=== PATIENT | male | born 1955 | race Caucasian/White ===

== ENCOUNTER 2020-03-05 02:19 | Observation (INO) ==
[2020-03-05] MEDS ORDERED: LORazepam 2 MG/4 ML VIAL IV STA (02:37)
[2020-03-05] MEDS ORDERED: SODIUM CHLORIDE 0.9% 1000ML 1,000 ML IV SCH (02:45)
[2020-03-05 02:57] LABS: Hematocrit (blood only) 45.6 % (42-52); Hemoglobin 15.9 g/dL (14.0-18.0); Mean Corpuscular Hemoglobin 29.8 pg (25-34); Mean Corpuscular Hgb Conc 34.9 g/dL (32-36); Mean Corpuscular Volume 85.4 fL (80-100); Mean Platelet Volume 9.3 fL (7.4-10.4); Platelet Count 370 K/uL (130-400); RDW Coefficient of Variation 12.8 % (11.5-14.5); RDW Standard Deviation 39.7 fL (36.4-46.3); Red Blood Count 5.34 M/uL (4.7-6.1); White Blood Count 12.15 K/uL (4.8-10.8)
[2020-03-05 03:15] LABS: Appearance Urine Clear (Clear); Bacteria Urine Automated Negative (Negative); Bilirubin Urine Negative (Negative); Blood Urine Trace (Negative); Color Urine Yellow; Epithelial Cell Urine Auto 0-5 /lpf (0-5); Glucose Urine UA Negative (Negative); Ketones Urine Trace (Negative); Leukocyte Esterase Urine Negative (Negative); Nitrite Urine Negative (Negative); Protein Urine 2+ (Negative); RBC Urine Automated 0-4 /hpf (0-4); Specific Gravity Urine 1.019 (1.000-1.030); Urobilinogen Urine Negative (Negative)
[2020-03-05 03:17] LABS: Albumin Level 3.9 gm/dl (3.4-5.0); BUN Creatinine Ratio 16.5 (10-20); Calcium 8.9 mg/dl (8.5-10.1); Creatinine Clr Calc Pharmacy 83.4 ml/min; Est GFR (African American) 81.2; Magnesium 2.5 mg/dl (1.8-2.4); Potassium 3.2 mmol/L (3.5-5.1)
[2020-03-05 03:28] LABS: Albumin Globulin Ratio 1.1 (0.9-2); Bilirubin,Total 0.2 mg/dl (0.2-1); Globulin 3.7 gm/dl (2.5-4.0); Phosphorus 2.5 mg/dl (2.5-4.9); Thyroid Stimulating Hormone 1.05 uIu/ml (0.300-4.500); Total Protein 7.6 gm/dl (6.4-8.2)
[2020-03-05 03:31] LABS: Amphetamines+Metham, Urine Neg (Neg); Barbiturates, Urine Neg (Neg); Benzodiazepine, Urine Neg (Neg); Cocaine, Urine Neg (Neg); MDMA (Ecstacy), Urine Neg (Neg); Methadone, Urine Neg (Neg); Opiate, Urine Neg (Neg); Phencyclidine, Urine Neg (Neg)
[2020-03-05 03:44] LABS: ALC (manual) 6.18 K/uL (1.2-3.4); ANC (manual) 4.56 K/uL (1.4-6.5); Basophils # (manual) 0.44 K/uL (0-0.2); Basophils % (manual) 3.6 %; Eosinophils # (manual) 0.11 K/uL (0-0.5); Eosinophils % (manual) 0.9 %; Large Granular Lymph # (manua 2.49 K/uL; Large Granular Lymph % (manual) 20.5 %; Lymphocytes # (manual) 3.69 K/uL (1.2-3.4); Lymphocytes % (manual) 30.4 %; Monocytes # (manual) 0.86 K/uL (0.11-0.59); Monocytes % (manual) 7.1 %; Neutrophils # (manual) 4.56 K/uL (1.4-6.5); Neutrophils % (manual) 37.5 %; RBC Morphology Unremarkable
[2020-03-05] MEDS ORDERED: LABETALOL HCL IV 5 MG/ML 20ML IV STA (04:37)
--- NOTE | 2020-03-05 05:14 | History & Physical Report ---
Date of Service March 05, 2020 Assessment & Plan (1) Hypertensive emergency: Mr. 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 On arrival to the ED, patient's BP was elevated to 220/119. - sys BP > 180 + generalized neurologic symptom (seizure) is suggestive of hypertensive emergency - Labetalol 10mg, IV, once given in ED - patient is not on any anti-hypertensive medications at home - will order trop and EKG to assess for evidence of end organ damage - reduce MAP by 10-20%, Target BP < 180 over 120 in the first hour, then by 5- 15%, < 160/ 110 over the next 23 hours - Lisinopril 10mg, PO, qAM ordered (after he passes bedside swallow). BETHANY is front line agent; Cr is normal and patient was hypokalemic on admission (would want to avoid direutic) - prn labetalol ordered for BP > 180/120 - consider work up for secondary HTN (in particular Conns syndrome given associated low K) (2) Seizure: - reports Mr. Duncan was shaking in bed - patient denies history of underlying seizure disorder - BG normal. Na level normal at 138. Etoh neg. Urine tox neg. CBC normal. - 2mg Ativan administered in ED - Head CT showing no acute process. + enlarged sella observed - MRI brain ordered - EEG ordered - CXR ordered to assess for possible aspiration - Neuro consult ordered - continue seizure precautions - NPO until bedside swallow (3) Hypokalemia: - level 3.2 on admission - etiology of hypokalemia is uncertain - patient is not on any direutic therapy - IV replacement ordered - trend BMP (4) Leukocytosis, unspecified: - WBC elevated to 14 on admission - UA showing no evidence of infection - CXR ordered - etiology: infection vs. physiology stress response to seizure - trend CBC (5) Hypothyroid: - TSH 1 on admission - continue home dose Synthroid (6) Xanthelasma: - fasting lipid panel and HbA1c ordered Diet: NPO until bedside swallow DVT ppx: SCDs Dispo: Med/Surg with tele Code: Full History of Present Illness Primary Care Provider: Dustin Shea Mr. Duncan is a 64 yo M who was in his usual state of health until this evening when his awoke in bed from an intense shaking sensation - she called EMS to their home because it appeared as though Mr. Duncan was having a seizure. Mr. Duncan was reportedly post-ictal when EMS arrived. His pre-hospital BG was 122. On arrival, he denies any seizure history. He denies any cold symptoms; he insists he was feeling fine before this event happened. He denies nay substance or etoh ingestion. He jokingly admits the only difference to his day to day routine was that he and his ate sushi for dinner. He denies losing continen ce of his bladder or bowels prior to coming into the hospital. He denies any preceding head trauma. Soc Hx: He and his recently moved to the area from [place], [place]. 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 He has not yet had the opportunity to establish with a primary care physician in the area. PMHx: Hypothyroidism, on replacement with Synthroid. He reports a history of signficant white coat hypertension. In anticipation of a doctors visit, he woudl take his BP ~ 30 times over 2 days in order to "prepare" himself for the feeling. In the ED, patient was afebrile; his HR was elevated to 119bpm, his BP was 220/119. He was breathing well on RA, O2 sat 94%. His BG was 151. His Na level was normal at 138; calcium normal at Allergies Allergy/AdvReac Type Severity Reaction Status Date / Time No Known Allergies Allergy Verified 03/05/20 04:03 Home Medications Medication Instructions Recorded Confirmed Type levothyroxine 100 mcg PO DAILY 03/05/20 03/05/20 History Past Med/Surg History Social History Smoking Status: Never smoker Hx Alcohol Use: No Hx Substance Use: No Preferred Language: Occitan Communication Ability: Effective Procedure Rn Required: No Beliefs That Will Affect Care: None Current Living Situation: Spouse Feels Safe at Home: Yes Review of Systems Constitutional: no fever, no sweats and no body aches Eyes: no worsening vision Respiratory: no cough and no dyspnea Cardiovascular: no chest pain Genitourinary: no dysuria Neurologic: + seizure-like activity; no headache(s) Physical Exam Constitutional: well developed and well nourished; no acute distress Eyes: + anicteric sclerae and PERRL +xanthelasma ENMT: + tongue laceration Neck: normal visual inspection and trachea midline Respiratory: normal respiratory effort, lungs clear to auscultation Auscultation: no crackles, no rales and no wheezes Cardiovascular: Rate/Rhythm: regular rhythm and + tachycardic Heart Sounds: normal S1 and normal S2; no gallop, no murmur and no cardiac rub Gastrointestinal (Abdomen): normal bowel sounds, soft, nontender, no hepatosplenomegaly Skin: no rashes, warm and dry + nails dystrophic Neurologic: moves all extremities Psychiatric: A+Ox3, euthymic affect Affect: euthymic affect Results & Data Results & Data ([facility]) Vital Signs (Past 12 Hours) Vital Signs Temp Pulse Resp BP Pulse Ox 03/05/20 05:00 101 H 30 H 186/114 H 03/05/20 04:30 92 H 14 198/123 H 94 03/05/20 04:00 96 H 22 209/114 H 94 03/05/20 03:41 101 H 16 207/115 H 96 03/05/20 03:00 102 H 16 200/121 H 90 03/05/20 02:42 16 93 03/05/20 02:37 112 H 16 212/124 H 94 03/05/20 02:30 114 H 16 189/116 H 90 03/05/20 02:21 36.6 C 120 H 16 220/119 H 93 03/05/20 02:20 119 H 16 220/119 H 91 Supervising Physician Co-Signing Physician Notes Patient seen and examined, chart reviewed, case discussed with Dr. Gray and I agree with her assessment and plan as documented above Resident Activity Tracking Resident Involvement: Resident Care Provided Care Provided: Adult Hospital Medicine
[2020-03-05] MEDS ORDERED: lisinopril 10 MG TAB PO STA (05:49)
[2020-03-05] MEDS ORDERED: ONDANSETRON INJ 2 MG/ML 2 ML VIAL IV PRN (05:54)
[2020-03-05] MEDS ORDERED: ACETAMINOPHEN 325 MG TAB PO PRN (05:54)
[2020-03-05] MEDS ORDERED: MAGNESIUM HYDROXIDE SUSP 30 ML UDC PO PRN (05:54)
[2020-03-05] MEDS ORDERED: POLYETHYLENE (MIRALAX) 17 GM PACK PO PRN (05:54)
[2020-03-05] MEDS ORDERED: ALUMINUM/MAGNESIUM SUSP 30 ML UDC PO PRN (05:54)
[2020-03-05] MEDS ORDERED: LABETALOL HCL IV 5 MG/ML 20ML IV PRN (06:06)
[2020-03-05] MEDS: POTASSIUM CHLORIDE / WTR 10 MEQ/100 ML PLCT IV SCH ×4 (06:26→10:37)
[2020-03-05] MEDS ORDERED: LEVOTHYROXINE SODIUM 100 MCG TABLET PO SCH (06:30)
--- NOTE | 2020-03-05 06:44 | Billing Data ---
Date of Service March 05, 2020 Coding Level of Care Code 12230 OBS Care - Level 3
[2020-03-05 07:48] LABS: Phosphorus 2.2 mg/dl (2.5-4.9); Troponin I 0.138 ng/ml (0-0.045)
--- NOTE | 2020-03-05 08:11 | CT Scan Report ---
HEAD CT NONCONTRAST CT DOSE: 788.63 mGycm HISTORY: seizure TECHNIQUE: Multiaxial CT images of the head were performed without the use of intravenous contrast. A utomated exposure control was utilized for this study. A dose lowering technique was utilized adheri ng to the principles of ALARA. Comparison: None. Findings: The paranasal sinuses and mastoid air cells are clear. The calvarium and skull base are int act. Expansion of the sellar region which may represent a suprasellar mass. There is no hematoma, mid line shift, acute infarct. Impression: 1. No acute infarct. 2. Expansion of the sella region which may represent a suprasellar/pituitary mass. Follow-up brain MR I recommended. ACT 112: Negative or not required by law. Electronically signed by: Aaron Bennett M.D. 03/05/2020 8:10 AM
[2020-03-05] MEDS ORDERED: lisinopril 10 MG TAB PO SCH (09:00)
--- NOTE | 2020-03-05 09:35 | XRay Report ---
XR chest 1V portable CLINICAL HISTORY: seizure, assess for possible aspiration COMPARISON STUDY: No previous studies for comparison. FINDINGS: Lung volumes are normal. There is no consolidation. No pneumothorax or pleural effusion is noted. There is mild cardiomegaly. Pulmonary vascularity is normal. IMPRESSION: No acute cardiopulmonary findings. ACT 112: Negative or not required by law. Electronically signed by: Yonas Boykin M.D. 03/05/2020 9:34 AM
--- NOTE | 2020-03-05 09:45 | Neurology Consultation ---
Date of Consultation March 05, 2020 Assessment & Plan (1) Seizure: (2) Hypertensive emergency: (3) Abnormal CT of brain: early this morning, March 05, the patient had what seemed to be a generalized tonic seizure lasting around 5 minutes. He had some postictal confusion which resolved. Currently, he is normal with his mental status and has no focal findings, meningeal signs, or encephalopathy. The patient had markedly elevated blood pressure reading and has continued to be very hypertensive throughout this hospitalization. The etiology of the seizure is not readily apparent although significant hypertension could in theory trigger a generalized seizure. In addition the CT scan of the head shows an and large-cell a suggesting a possible pituitary region tumor. He has no other issues referable to the head otherwise. Recommendations: 1. Control blood pressure as you are doing aiming for a mean arterial pressure of 95-100. 2. MRI of the brain with without contrast with attention to the temporal lobes and sella 3. EEG routine. 4. Hold on anticonvulsants for now will make final recommendations after the above tests. 5. The patient does not have a primary care physician but could be followed by a resident under the direction of Dr. Brown (Or Dr. Ortega). Overall, I spent a total of 100 minutes with the case including review of records, review of CT films, direct evaluation of patient at bedside and discussing the case with the patient at bedside, RN at bedside, the patient's and daughter via telephone, and Dr. Ortega including differential diagnosis and treatment options. History of Present Illness Reason for Consultation: Patient is a 64-year-old, who I was asked to see at the request of Dr. Gray, for neurologic consultation regarding seizure Requesting Physician: Dr. Gray Attending Physician: Bushra Ortega MD History of Present Illness patient has a history of hypothyroidism on levothyroxine. He has no history of seizures, significant head trauma, meningitis, heart disease, hypertension, diabetes, or dyslipidemia. He does tell me that he has "white coat" syndrome with elevated blood pressure readings he goes to see his. when he takes it at home, it is apparently normal. The patient has no history of toxin exposure or substance abuse. He does not take anything that he could withdraw from. He has not been ill recently and was eating and drinking normally. He has been sleeping normally as well. Yesterday he bought a new vehicle. He was feeling well and ate normally. Went to bed around 11 p.m. as usual. Apparently his ( Who I spoke with , along with his daughter, via telephone) was awoke in at about 0115 this morning with the bed vibrating. It started out slow and got more intense. She felt that he was stiff and shaking all over. His eyes were open and staring he was making noises at times and no words. He was not responding to voice or shake. His jaw was clenched at times and other times is jaw was relaxed. the whole episode lasted about 5-7 minutes they believe. afterwards he was a little confused and did not have any urinary incontinence or tongue biting. EMS arrived and felt he was a little groggy but then by the time he got to the emergency room at 0220 he was back to normal. Emergency room temperature was 36.6, pulse 120, respiratory rate 16, blood pressure 220/119, and O2 saturation 93 percent. He was described as having a normal exam and normal mental status in the emergency room. CBC was unremarkable although the white count was slightly elevated with some increase limbs. Chem profile showed a glucose of 150 and normal electrolytes except for a mildly low potassium. Magnesium was normal. Urinalysis and tox screen were unremarkable. Triglyceride was 157 and total cholesterol 188. TSH was normal at 1.0. CT scan of the head was unremarkable although the sella seem expanded. Was no other acute findings. I reviewed this CT. This morning blood pressure remains elevated 198/140 and prior to that 188/90. He has been in normal sinus rhythm in the 70s with occasional PVCs. He feels well and nursing reports no seizures or other activity since admission. He has no pain, weakness, numbness, vision problems, mentation issues, or speech problems. Allergies Allergy/AdvReac Type Severity Reaction Status Date / Time No Known Allergies Allergy Verified 03/05/20 04:03 Home Medications Medication Instructions Recorded Confirmed Type levothyroxine 100 mcg PO DAILY 03/05/20 03/05/20 History Patient History Medical History Hypothyroid Family History Mother Heart disease Father , age 88 with heart issues Heart disease Social History Smoking Status: Never smoker Hx Alcohol Use: Yes Alcohol type: wine Alcohol Intake Frequency Comment: 1 glass every 2 months Hx Substance Use: No Preferred Language: Slovenian Communication Ability: Effective Delivery Specialist Required: No Beliefs That Will Affect Care: None Current Living Situation: Spouse and Family current occupational status: employed 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 [employer] Feels Safe at Home: Yes Review of Systems Constitutional: no fever, no fatigue and no weakness Eyes: no diplopia, no eye pain and no worsening vision Ear, Nose, Mouth, Throat: no ear pain, no tinnitus, no hearing loss, no dizziness, no hoarseness and no dysphagia Respiratory: no cough and no dyspnea Cardiovascular: no chest pain, no palpitations and no lightheadedness Gastrointestinal: no abdominal pain, no nausea and no vomiting Genitourinary: no dysuria and no urinary incontinence Musculoskeletal: no back pain, no neck pain, no radicular pain, no joint pain and no myalgia Integumentary: no rash and no lesions Neurologic: no gait abnormality, no localized weakness, no generalized weakness, no tingling, no numbness, no tremor(s), no abnormal movements, no headache(s), no abnormal speech, no confusion and no memory loss Psychiatric: no depression, no irritability, no anxiety, no difficulty concentrating, no confusion and no hallucinations Endocrine: no fatigue and no flushing Hematologic / Lymphatic: no easy bleeding and no easy bruising Allergy / Immunological: no urticaria and no problem reported Exam (Neuro) Physical Exam: The patient is right-handed. The patient is awake, alert, and attentive. Speech is normal without any aphasia or dysarthria. he can name objects, repeat phrases, and has normal spontaneous speech. Mentation and thought processes are intact, with orientation to person, place and time, and normal fund of knowledge. Attention and concentration are normal. Mood and affect are normal and appropriate. General appearance and grooming are normal. Short and long-term memory are intact. The discs are sharp with positive venous pulsations bilaterally. There are no exudates, hemorrhages, or blood vessel changes seen. Pupils are 4 mm bilaterally and reactive to light. Extraocular eye muscles are intact without nystagmus. V isual acuity and visual hoover seem normal grossly to confrontation. There are no deficits to sensation in the face in all 3 distributions of the fifth cranial nerve bilaterally. Corneal reflexes are positive bilaterally. Facial strength and symmetry was normal bilaterally. Hearing seems normal to whisper and finger rub bilaterally. Palate moves well without asymmetry. There is normal sternocleidomastoid and trapezius (shoulder shrug) strength bilaterally. Tongue is midline with good strength bilaterally. Neck has a full range of motion without discomfort. There are no cervical bruits bilaterally. There are no cranial or ocular bruits. Heart is without murmur. There is a regular rhythm and rate. Cervical, thoracic, and lumbar spine are nontender to palpation. Gait was not tested but stance sitting up in bed is normal. With outstretched arms there is no drift. There are no resting, postural, or action tremors. There is no ataxia with finger to nose testing. There is good facility in the hands. No other abnormal involuntary movements are noted. Motor strength is 5/5 diffusely in the arms bilaterally including deltoids, biceps, triceps, brachioradialis, wrist flexors and extensors, line worker, and intrinsic hand muscles. Motor strength is 5/5 diffusely in the legs bilaterally including hip flexors, quadriceps, hamstrings, gastrocnemius, tibialis anterior, tibialis posterior, and Peroneii muscles. Toe extensors are normal and there is good bulk in the extensor digitorum brevis muscles bilaterally. The limbs have good tone without rigidity or spasticity. There is no atrophy no michele in the muscles. Muscle bulk is normal, there is no tenderness to palpation, no myotonia to percussion, and no fasciculations seen. Sensory examination is intact to touch and pin throughout all 4 limbs diffusely. Reflexes are 2/4 in the biceps, triceps, brachioradialis, quadriceps, and Achilles tendons bilaterally. There is no clonus bilaterally. Toes are downgoing with plantar stimulation bilaterally. Peripheral pulses are present and of normal quality distally in all 4 limbs. There is no peripheral edema noted in the limbs. Results & Data ([facility]) Vital Signs (Past 12 Hours) Vital Signs Temp Pulse Pulse Resp BP BP Pulse Ox 03/05/20 07:37 37.0 C 74 20 188/98 H 96 03/05/20 06:05 36.9 C 74 18 215/108 H 95 03/05/20 05:00 101 H 30 H 186/114 H 03/05/20 04:30 92 H 14 198/123 H 94 01/17/21 04:00 96 H 22 209/114 H 94 03/05/20 03:41 101 H 16 207/115 H 96 03/05/20 03:00 102 H 16 200/121 H 90 03/05/20 02:42 16 93 03/05/20 02:37 112 H 16 212/124 H 94 03/05/20 02:30 114 H 16 189/116 H 90 03/05/20 02:21 36.6 C 120 H 16 220/119 H 93 03/05/20 02:20 119 H 16 220/119 H 91 PG Care Time/CCT Total # of Minutes Spent Total Time Spent with Patient: Total time spent is greater than 50% in coordination of care (as documented) at patient's floor/unit and/or counseling patient: Coding Level of Care Code 31350 Office/OBS Consult Lvl 5 Diagnoses Seizure R56.9 Hypertensive emergency I16.[address] of brain R90.89 Time Spent (min) 100 Comment Bill as time - add [id number] and 11698 as needed
[2020-03-05] MEDS ORDERED: hydroCHLOROthiazide 25 MG TAB PO ONE (10:30)
[2020-03-05] MEDS ORDERED: LORazepam 1 MG/2 ML VIAL IV STA (10:58)
[2020-03-05] MEDS ORDERED: GADOBUTROL 65ML VIAL IV ONE (13:36)
--- NOTE | 2020-03-05 13:57 | Magnetic Resonance Report ---
Brain and pituitary MRI WITH AND WITHOUT CONTRAST HISTORY: seizure,enlarged sella on head CT TECHNIQUE: Multiplanar multisequence MRI of the brain and pituitary fossa were performed both before and after the intravenous administration of 10.5 cc of Gadavist contrast. Dynamic posterior contrast imaging through the pituitary fossa was also obtained. COMPARISON STUDY: Head CT 03/05/2020. FINDINGS: No areas of restricted diffusion to suggest acute infarction. There is a small polyp/retent ion cyst within the left frontal sinus measuring 1.1 cm. The orbits unremarkable. No fluid levels wit hin the paranasal sinuses. The mastoid air cells are clear. The major vascular flow voids at the skul l base are well-maintained. The ventricles are normal in size. No intracranial hemorrhage or midline shift. There is a 3.1 x 2.8 x 2.6 cm heterogeneous enhancing suprasellar mass. This results in mild s uperior displacement of the optic chiasm. This partially extends into the left cavernous sinus result s in partial encasement of the cavernous portion of the left internal carotid artery. However, no sig nificant narrowing identified. The clivus is intact. This mass results in remodeling and expansion of the sella turcica as seen on the prior head CT. IMPRESSION: A 3.1 x 2.8 x 2.6 cm heterogeneous enhancing suprasellar mass as described above. Favors a pituitary macroadenoma. Nonemergent surgical consultation advised. ACT 112: Negative or not required by law. Electronically signed by: Aaron Bennett M.D. 03/05/2020 1:56 PM
--- NOTE | 2020-03-05 14:13 | Electroencephalogram ---
EEG Procedure Note Date of Service March 05, 2020 Start / End Times Start Time: 1341 End Time: [address] Ortega History 64 yo with new onset , nocturnal generalized clonic seizure about 12 hours previous Home Medication List Medication Instructions Recorded Confirmed Type levothyroxine 100 mcg PO DAILY 03/05/20 03/05/20 History Inpatient Medication List Labetalol HCl (Labetalol Hcl Iv 5 Mg/Ml 20ml) 10 mg IV Q1H PRN PRN Reason: Hypertension Stop: 04/04/20 06:05 Last Admin: 03/05/20 06:26 Dose: 10 mg Documented by: [id number] Cosigned by: [id number] Levothyroxine Sodium (Levothyroxine Sodium 100 Mcg Tablet) 100 mcg PO DAILYBB [facility] Stop: 04/04/20 06:29 Last Admin: 03/05/20 06:26 Dose: 100 mcg Documented by: [id number] Lisinopril (Lisinopril 10 Mg Tab) 10 mg PO QAM [facility] Stop: 04/04/20 08:59 Last Admin: 03/05/20 07:27 Dose: 10 mg Documented by: [id number] Discontinued Medications Gadobutrol (Gadobutrol 65ml Vial) 10.5 ml IV ONCE ONE Stop: 03/05/20 13:37 Last Admin: 03/05/20 13:37 Dose: 10.5 ml Documented by: [id number] Hydrochlorothiazide (Hydrochlorothiazide 25 Mg Tab) 12.5 mg PO NOW ONE Stop: 03/05/20 10:31 Last Admin: 03/05/20 10:47 Dose: 12.5 mg Documented by: [id number] Sodium Chloride (Nss 1000ml) 1,000 mls @ 999 mls/hr IV .Q1H1M NATHALIE Stop: 03/05/20 03:45 Last Infusion: 03/05/20 03:58 Dose: 0 mls/hr Documented by: [id number] Admin: 03/05/20 02:53 Dose: 999 mls/hr Documented by: [id number] Lorazepam (Ativan) 2 mg in 4 mls @ 4 mls/min IV NOW STA Stop: 03/05/20 02:38 Last Admin: 03/05/20 02:52 Dose: 4 mls/min Documented by: [id number] Potassium Chloride (K Ja / Wtr) 10 meq in 100 mls @ 100 mls/hr IV Q1H NATHALIE Stop: 03/05/20 10:29 Last Infusion: 03/05/20 10:38 Dose: 0 mls/hr Documented by: [id number] Admin: 03/05/20 10:37 Dose: 100 mls/hr Documented by: [id number] Infusion: 03/05/20 10:37 Dose: 0 mls/hr Documented by: [id number] Admin: 03/05/20 08:47 Dose: 100 mls/hr Documented by: [id number] Infusion: 03/05/20 08:28 Dose: 100 mls/hr Documented by: [id number] Admin: 03/05/20 07:28 Dose: 100 mls/hr Documented by: [id number] Infusion: 03/05/20 07:26 Dose: 100 mls/hr Documented by: [id number] Admin: 03/05/20 06:26 Dose: 100 mls/hr Documented by: [id number] Lorazepam (Ativan) 1 mg in 2 mls @ 2 mls/min IV NOW STA Stop: 03/05/20 10:59 Last Admin: 03/05/20 11:14 Dose: 2 mls/min Documented by: [id number] Labetalol HCl (Labetalol Hcl Iv 5 Mg/Ml 20ml) 10 mg IV NOW STA Stop: 03/05/20 04:38 Last Admin: 03/05/20 05:02 Dose: 10 mg Documented by: [id number] Cosigned by: [id number] Lisinopril (Lisinopril 10 Mg Tab) 10 mg PO NOW STA Stop: 03/05/20 05:50 Last Admin: 03/05/20 06:20 Dose: Not Given Documented by: [id number] Description This is a 21 electrode EEG with a single channel dedicated to limited EKG. The electrodes were placed in accordance with the International 10-20 system. Interpretation The predominant background activity consists of a very well modulated 9 Hz activity, of up to 50 mV in amplitude,seen symmetrically distributed over the posterior head regions bilaterally. This activity attenuates nicely with eye- opening and other alerting procedures. Photic stimulation was performed and elicited no change in the background activity and no abnormal responses were seen. Hyperventilation was not performed. A mild to moderate amount of muscle, movement, and electrode "pop" artifact activity contaminated the recording and hindered interpretationfrom time to time. Throughout the waking portion of the recording, no focal abnormalities, abnormal slow activity, or potentially epileptogenic discharges are seen. The patient entered the drowsy state with no further activation. In summary, this mildly technically difficult EEG was normal during wakefulness and drowsiness. No focal abnormalities, potentially epileptogenic discharges, or abnormal slow activity was seen. Clinical Correlation The abscence of potentially epileptogenic activity does not exclude a seizure disorder, since interictally, EEGs can be normal. Clinical correlation is required. [facility] EEG Procedure Codes Indication for Procedure (1) Seizure: Neurology Neurology: [id number] EEG include record awake & drowsy
[2020-03-05] MEDS ORDERED: LABETALOL HCL 100 MG TAB PO ONE ×2 (15:03→16:23)
--- NOTE | 2020-03-05 15:57 | XCELERA ---
[id number]
[2020-03-05 16:40] LABS: Follicle Stimulating Hormone 18.98 IU/L; Luteinizing Hormone 1.04 IU/L; T4 Thyroxine 8.6 mcg/dl (4.5-10.9)
--- NOTE | 2020-03-05 18:10 | Discharge Summary ---
Date of Service March 05, 2020 Admission HPI Per Admitting Provider Mr. Duncan is a 64 yo M who was in his usual state of health until this evening when his awoke in bed from an intense shaking sensation - she called EMS to their home because it appeared as though Mr. Duncan was having a seizure. Mr. Duncan was reportedly post-ictal when EMS arrived. His pre-hospital BG was 122. On arrival, he denies any seizure history. He denies any cold symptoms; he insists he was feeling fine before this event happened. He denies nay substance or etoh ingestion. He jokingly admits the only difference to his day to day routine was that he and his ate sushi for dinner. He denies losing continence of his bladder or bowels prior to coming into the hospital. He denies any preceding head trauma. Soc Hx: He and his recently moved to the area from [place], [place]. 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 He has not yet had the opportunity to establish with a primary care physician in the area. PMHx: Hypothyroidism, on replacement with Synthroid. He reports a history of signficant white coat hypertension. In anticipation of a doctors visit, he woudl take his BP ~ 30 times over 2 days in order to "prepare" himself for the feeling. In the ED, patient was afebrile; his HR was elevated to 119bpm, his BP was 220/119. He was breathing well on RA, O2 sat 94%. His BG was 151. His Na level was normal at 138; calcium normal at Principal Diagnosis Hypertensive emergency Seizure Pituitary macroadenoma Discharge Exam Constitutional WD/WN, vitals as above Respiratory normal respiratory effort, lungs clear to auscultation Cardiovascular RRR, no murmur, no edema Psychiatric A+Ox3, euthymic affect Discharge Data Allergies Allergy/AdvReac Type Severity Reaction Status Date / Time No Known Allergies Allergy Verified 03/05/20 04:03 Consultations 03/05/20 05:23 ED Decision to Admit Stat 03/05/20 05:54 Consult Neurology Routine Ordered Studies 03/05/20 02:37 CT head/brain wo con Urgent 03/05/20 05:54 MR brain wo/w con Routine Hospital Course (1) Hypertensive emergency: 64 yo M with a PMHx of hypothyroidism on replacement with synthroid who was admitted to [facility] in the 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 On arrival to the ED, patient's BP was elevated to 220/119. # Hypertensive Emergency: sys BP > 180 + generalized neurologic symptom (seizure) is suggestive of hypertensive emergency - patient is not on any anti-hypertensive medications at home - Given Labetalol 10mg, IV in ED - Over next day ~ 20-30 points drop in blood pressure with multiple doses of IV labetolol, lisinopril and HCTC. Later in the day he was given labetolol dose of PO 200mg and his systolic dropped to 150s systolic and was discharged home on 200mgs labetolol dose bid. - Aldosterone/renin levels are sent - in setting of low K. TSH normal. Other labs see work up for pituitary nodule. - Echo showed severe concentric hypertrophy suggesting longstanding uncontrolled BP - Establish and follow up with PCP # Seizure: reported Mr. Duncan was shaking in bed - patient denied history of underlying seizure disorder - BG normal. Na level normal at 138. Etoh neg. Urine tox neg. CBC normal. - 2mg Ativan administered in ED - Head CT showed + enlarged sella observed - MRI brain ordered - showing 3x2x2 size macroadenoma. - EEG ordered - normal - Neuro consulted - recommendation - Neurosurgical consultation - to be done as outpatient as per patient's preference. - Keppra 500mgs bid - Rx sent. - endocrine work up - ACTH, IGF-1, LH, FSH, Testosterone ordered. - f/u with neurology as outpatient. - No further seizures during hospital stay. - Labs pending on discharge # Troponin elevation: 0.138; No h/o CAD, No chest pain, shortness of breath - Likely due to Elevated BP. Recheck improved. - Echo with normal EF and no RWMA. Severe concentric hypertrophy noted. (2) Pituitary adenoma: (3) Seizure: (4) Elevated troponin: (5) LVH (left ventricular hypertrophy) due to hypertensive disease: Total Time Total Time Spent Total Time Spent (In Minutes): 60 min Discharge Plan Discharge Items Patient Disposition: Home - Self-Care Reason For Visit: SEIZURE Discharge Diagnosis: Seizure Hypertensive urgency with Untreated Hypertension Activity: Per Instructions section Lifting: None Bathing: No limitations Sexual Activity: Wait until after follow-up appointment Exercise/Sports: None Driving/Machine Use: No driving until seen by neurology Non-emergency contact: Primary Care Provider Call non-emergency contact if: you have any medication questions and your symptoms worsen Follow-up/Referrals: Dustin Shea MD [Primary Care Provider] - Diet: Low Sodium (2gm) Addtl Attending Provider Instructions: You were admitted for having seizure. In the ER your BP was very high with systolic in 220. You also had CT scan showing wide sellar area. Neurologist - Dr. Broussard saw you. You had EEG which was normal and an MRI brain showed 3x2x2 size sellar nodular swelling. You are recommended to follow up with neurology to set a neurosurgical evaluation as early as possible. In the meantime you have been started on Keppra - medication to prevent further seizures. You will follow with Dr. Broussard in office - Please call his office to set up appointment - [phone] You also were noted to have mild elevation of heart enzymes which was due to elevated blood pressure. The echocardiogram showed severe thickening of left ventricle. This likely due to long standing uncontrolled blood pressure. Your blood pressure is high on discharge and should slowly come down with medication. You are going home on labetolol 200mgs twice a day. You should also be tested for sleep apnea. Please cut your salt intake to less than 2gms a day. You will establish with primary care physician office - Our office will call you to confirm the appointment on 03/09/2020 at 12:30pm. There are blood test pending on discharge which will need followed up at the office. Pending Studies at Discharge: Yes Stand-Alone Forms: My [facility] Pressflip, Smoking Cessation Medications and DC Order Prescriptions: New labetalol 200 mg tablet 200 mg PO BID Qty: 60 RF: 0 levetiracetam [Keppra] 500 mg Tablet 500 mg PO BID Qty: 60 RF: 0 levothyroxine 100 mcg tablet 100 mcg PO DAILY Qty: 30 RF: 1 Discharge Orders: Discharge Order (Routine); Ordered 03/05/20 Ordered By: Bushra Ortega Admission Data Admit Date/Time: 03/05/20 05:14 Attending Provider: Bushra Ortega Admit Provider: Ariela Gray Primary Care Provider: Shea,Dustin B. Other Providers: Ann-Marie Hansen Emile Other Interventions: Discharge Summary Assessment (RN) Last Done: 03/05/20 18:33
[2020-03-05] MEDS ORDERED: LABETALOL HCL 100 MG TAB PO SCH ×2 (19:00→21:00)
[2020-03-05] MEDS ORDERED: levETIRAcetam 500 MG TAB PO SCH ×2 (19:00→21:00)
--- NOTE | 2020-03-06 06:05 | Electrocardiogram Report ---
Test Reason : Blood Pressure : / mmHG Vent. Rate : 117 BPM Atrial Rate : 117 BPM P-R Int : 160 ms QRS Dur : 108 ms QT Int : 340 ms P-R-T Axes : 026 -52 098 degrees QTc Int : 474 ms Sinus tachycardia Left axis deviation Left ventricular hypertrophy with repolarization abnormality Poor R wave progression, consider anterior [place] vs. lead placement vs. LVH Abnormal ECG No previous ECGs available Confirmed by Ashutosh Barnes ([id number]) on 03/06/2020 6:05:29 AM Referred By: REFERRED SELF Confirmed By:Ashutosh Barnes
[2020-03-06 06:31] LABS: Estimated Average Glucose 114 mg/dl; Hemoglobin A1C 5.6 % (4.5-5.6)
[2020-03-06] MEDS ORDERED: hydroCHLOROthiazide 25 MG TAB PO SCH (09:00)
[2020-03-06] MEDS ORDERED: LABETALOL HCL 100 MG TAB PO SCH (09:00)
--- NOTE | 2020-03-06 15:01 | Emergency Department Note ---
Impression & Plan Hypertensive emergency, Seizure, Elevated troponin ED Provider Note NAME: SANTI GRIMALDO AGE: 64 SEX: M ARRIVES VIA: Ambulance INFORMANT: Patient, , EMS ED PROVIDER(S): Arlette Osullivan MD CHIEF COMPLAINT: Seizure PLAN: Disposition: Inpatient Condition: Fair Referral: Hospitalist MEDICAL DECISION MAKING: This patient was evaluated and appeared to be in no significant distress. IV access was obtained and laboratory work was drawn. An order for cardiac monitoring was placed and the patient was noted to be in sinus tachycardia at 120 bpm. Patient is noted to be markedly hypertensive. He was given 1 mg of IV Ativan without any significant improvement. The patient states he does not drink alcohol to any significant quantity. Patient was then given labetalol [address] scan of the head was performed and reveals no acute intracranial abnormality however there is a fullness noted in the sellar region. Follow-up MRI is recommended. Patient's laboratory work reveals a mildly elevated troponin at 0.138. EKG reveals a left axis deviation with LVH. Patient states he has "whitecoat hypertension" but I suspect he has a longstanding hypertension that has been untreated. He has not seen a physician in at least over 1 year. His seizure episode today is likely related to hypertensive emergency. He will be evaluated by the hospitalist service for admission and further management. Patient is aware of the plan and agrees. I did speak with his over the ph one who is also aware of the plan. Triage Nursing notes reviewed. Additional history obtained from Vital Signs: reviewed and remarkable for tachycardia, hypertension Differential diagnosis: Benign hypertension, hypertensive emergency, cardiovascular pathology, toxicologic, pheochromocytoma, electrolyte abnormality, renal disease, endorgan damage, intracranial abnormality, epilepsy, as well as other pathologies. ER treatment provided: IV labetalol 10 mg IV Ativan 2 mg Diagnostics interpreted by me: ECG: Sinus tachycardia 117 bpm left axis deviation, LVH with repolarization abnormality. Poor R wave progression. QTc is 474prolonged. No PVC, no PAC. Cardiac Monitoring: An order for cardiac monitoring was placed and the patient is noted to be in a sinus tachycardia at 120 bpm. Laboratory studies: See below Imaging studies: HEAD CT NONCONTRAST CT DOSE: 788.63 mGycm HISTORY: seizure TECHNIQUE: Multiaxial CT images of the head were performed without the use of intravenous contrast. Automated exposure control was utilized for this study. A dose lowering technique was utilized adhering to the principles of ALARA. Comparison: None. Findings: The paranasal sinuses and mastoid air cells are clear. The calvarium and skull base are intact. Expansion of the sellar region which may represent a suprasellar mass. There is no hematoma, midline shift, acute infarct. Impression: 1. No acute infarct. 2. Expansion of the sella region which may represent a suprasellar/pituitary mass. Follow-up brain MRI recommended. ACT 112: Negative or not required by law. Electronically signed by: Aaron Bennett M.D. 03/05/2020 8:10 AM Dictated: 03/05/20807Transcribed: 03/05/20807 Consultation(s): Hospitalist HPI: 64/M arrives for evaluation of a seizure episode. Patient's called EMS after he began shaking in the middle of the night. She reported that it felt like an earthquake. She was asleep at the time but it woke her up. He does not have a seizure history. He denies any significant alcohol history. He was somewhat confused after the incident. He has been feeling well recently with no known Covid exposure. No known head trauma. Patient states he just moved to the area about 1 year ago and has not established with a primary care physician. He does not take medications other than levothyroxine. He denies any significant smoking history. ROS: See above HPI for pertinent positives & negatives. A total of 10 systems reviewed and were otherwise negative. PAST MEDICAL HISTORY:Hypothyroidism PAST SURGICAL HISTORY:See Below FAMILY HISTORY:See Below SOCIAL HISTORY:, lives with and daughter. 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 HOME MEDICATIONS:Levothyroxine ALLERGIES:No known drug allergies PHYSICAL EXAMINATION: Vital signs reviewed. Hypertensive and tachycardic General: Well-appearing but anxious 64-year-old male, in no significant distress. HEENT: No scleral icterus, PERRLA, neck supple. Atraumatic. Cardiovascular: Tachycardic rate, regular rhythm, no extra sounds. Pulmonary: Clear to auscultation bilaterally, normal work of breathing. Abdomen: Soft, nontender, nondistended, positive bowel sounds. Musculoskeletal: Atraumatic, no peripheral edema. Neurologic: Patient awake alert and oriented x 3, full strength in all 4 extremities. Cranial nerves 2 through 12 grossly intact. Skin: Warm, dry, no rash I have personally spent greater than 35 minutes of critical care time in the direct management of this patient. This includes bedside care, interpretation of diagnostic studies, and testing, discussion with consultants, patient, and family members, and other required patient management activities. This 35 kelsey black is in excess of all separately billable procedures. 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 [employer] Feels Safe at Home: Yes Assistive Devices: None Allergies Allergies Allergy/AdvReac Type Severity Reaction Status Date / Time No Known Allergies Allergy Verified 03/05/20 04:03 Home Meds Previous Rx's Medication Instructions Recorded labetalol 200 mg PO BID #60 tab 03/05/20 levetiracetam [Keppra] 500 mg PO BID #60 tab 03/05/20 levothyroxine 100 mcg PO DAILY #30 tab 03/05/20 Results & Data (ED) Laboratory Data Result diagrams: 03/05/20 Unknown 03/05/20 Unknown Lab Results 03/05/20 03/05/20 03/05/20 Range/Units 02:57 02:57 03:00 Urine Color Yellow Urine Appearance Clear (Clear) Urine pH 5.0 (4.5-7.5) Ur Specific [place] 1.019 (1.000-1.030) Urine Protein 2+ H (Negative) Urine Glucose (UA) Negative (Negative) Urine Ketones Trace H (Negative) Urine Blood Trace H (Negative) Urine Nitrite Negative (Negative) Urine Bilirubin Negative (Negative) Urine Urobilinogen Negative (Negative) Ur Leukocyte Esterase Negative (Negative) Urine WBC (Auto) 1-5 (0-5) /hpf Urine RBC (Auto) 0-4 (0-4) /hpf U Hyaline Cast (Auto) 1-5 (0-5) /lpf U Epithel Cells (Auto) 0-5 (0-5) /lpf Urine Bacteria (Auto) Negative (Negative) Urine Opiates Screen (Neg) Ur Methadone, Qual (Neg) Urine Barbiturates (Neg) Ur Phencyclidine (PCP) (Neg) U Amphetamin/Meth Scrn (Neg) MDMA (Ecstasy) Screen (Neg) U Benzodiazepines Scrn (Neg) Ur Cocaine Metabolite (Neg) U Marijuana (THC) Screen (Neg) Ethyl Alcohol mg/dL (0-3) mg/dl COVID-19 Eval Order Covid19 [facility] SARS-CoV-2, RNA, NAAT NEGATIVE (NEGATIVE) 03/05/20 03/05/20 Range/Units 03:00 03:03 Urine Color Urine Appearance (Clear) Urine pH (4.5-7.5) Ur Specific [place] (1.000-1.030) Urine Protein (Negative) Urine Glucose (UA) (Negative) Urine Ketones (Negative) Urine Blood (Negative) Urine Nitrite (Negative) Urine Bilirubin (Negative) Urine Urobilinogen (Negative) Ur Leukocyte Esterase (Negative) Urine WBC (Auto) (0-5) /hpf Urine RBC (Auto) (0-4) /hpf U Hyaline Cast (Auto) (0-5) /lpf U Epithel Cells (Auto) (0-5) /lpf Urine Bacteria (Auto) (Negative) Urine Opiates Screen Neg (Neg) Ur Methadone, Qual Neg (Neg) Urine Barbiturates Neg (Neg) Ur Phencyclidine (PCP) Neg (Neg) U Amphetamin/Meth Scrn Neg (Neg) MDMA (Ecstasy) Screen Neg (Neg) U Benzodiazepines Scrn Neg (Neg) Ur Cocaine Metabolite Neg (Neg) U Marijuana (THC) Screen Neg (Neg) Ethyl Alcohol mg/dL < 3.0 (0-3) mg/dl COVID-19 Eval Order SARS-CoV-2, RNA, NAAT (NEGATIVE) Administered Medications Discontinued Medications Gadobutrol (Gadobutrol 65ml Vial) 10.5 ml IV ONCE ONE Stop: 03/05/20 13:37 Last Admin: 03/05/20 13:37 Dose: 10.5 ml Documented by: [id number] Hydrochlorothiazide (Hydrochlorothiazide 25 Mg Tab) 12.5 mg PO NOW ONE Stop: 03/05/20 10:31 Last Admin: 03/05/20 10:47 Dose: 12.5 mg Documented by: [id number] Sodium Chloride (Nss 1000ml) 1,000 mls @ 999 mls/hr IV .Q1H1M NATHALIE Stop: 03/05/20 03:45 Last Infusion: 03/05/20 03:58 Dose: 0 mls/hr Documented by: [id number] Admin: 03/05/20 02:53 Dose: 999 mls/hr Documented by: [id number] Lorazepam (Ativan) 2 mg in 4 mls @ 4 mls/min IV NOW STA Stop: 03/05/20 02:38 Last Admin: 03/05/20 02:52 Dose: 4 mls/min Documented by: [id number] Potassium Chloride (K Ja / Wtr) 10 meq in 100 mls @ 100 mls/hr IV Q1H NATHALIE Stop: 03/05/20 10:29 Last Infusion: 03/05/20 10:38 Dose: 0 mls/hr Documented by: [id number] Admin: 03/05/20 10:37 Dose: 100 mls/hr Documented by: [id number] Infusion: 03/05/20 10:37 Dose: 0 mls/hr Documented by: [id number] Admin: 03/05/20 08:47 Dose: 100 mls/hr Documented by: [id number] Infusion: 03/05/20 08:28 Dose: 100 mls/hr Documented by: [id number] Admin: 03/05/20 07:28 Dose: 100 mls/hr Documented by: [id number] Infusion: 03/05/20 07:26 Dose: 100 mls/hr Documented by: [id number] Admin: 03/05/20 06:26 Dose: 100 mls/hr Documented by: [id number] Lorazepam (Ativan) 1 mg in 2 mls @ 2 mls/min IV NOW STA Stop: 03/05/20 10:59 Last Admin: 03/05/20 11:14 Dose: 2 mls/min Documented by: [id number] Labetalol HCl (Labetalol Hcl Iv 5 Mg/Ml 20ml) 10 mg IV NOW STA Stop: 03/05/20 04:38 Last Admin: 03/05/20 05:02 Dose: 10 mg Documented by: [id number] Cosigned by: [id number] Labetalol HCl (Labetalol Hcl Iv 5 Mg/Ml 20ml) 10 mg IV Q1H PRN PRN Reason: Hypertension Stop: 04/04/20 06:05 Last Admin: 03/05/20 06:26 Dose: 10 mg Documented by: [id number] Cosigned by: [id number] Labetalol HCl (Labetalol Hcl 100 Mg Tab) 100 mg PO NOW ONE Stop: 03/05/20 15:04 Last Admin: 03/05/20 15:45 Dose: 100 mg Documented by: [id number] Labetalol HCl (Labetalol Hcl 100 Mg Tab) 100 mg PO NOW ONE Stop: 03/05/20 16:24 Last Admin: 03/05/20 17:25 Dose: 100 mg Documented by: [id number] Levothyroxine Sodium (Levothyroxine Sodium 100 Mcg Tablet) [facility] Stop: 04/04/20 06:29 Last Admin: 03/05/20 06:26 Dose: 100 mcg Documented by: [id number] Lisinopril (Lisinopril 10 Mg Tab) 10 mg PO NOW [facility] Stop: 03/05/20 05:50 Last Admin: 03/05/20 06:20 Dose: Not Given Documented by: [id number] Lisinopril (Lisinopril 10 Mg Tab) 10 mg PO [facility] Stop: 04/04/20 08:59 Last Admin: 03/05/20 07:27 Dose: 10 mg Documented by: [id number] Discharge Plan Visit Data Chief Complaint: Seizure Stated Complaint: SEIZURE-LIKE ACTIVITY ED Provider: Arlette Osullivan Discharge Problem: Hypertensive emergency, Seizure, Elevated troponin Patient Disposition: Admitted As Inpatient Discharge Instructions Interventions: ED Discharge Assessment Last Done: 03/05/20 06:00
[2020-03-10 15:11] LABS: Adrenocorticotropic Hormone 18 pg/mL (6-50); ILGF1 Z-Score Female DNR
== END 2020-03-05 19:30 | disposition home or self-care (01) ==
LOC: 2S 02:19 → ED 02:19 → SUATTDRO 05:14 → 2S 06:00